=== PATIENT | male | born 1995 | race African-American/Black ===

== ENCOUNTER 2024-03-17 01:38 | Emergency (ER) | payer OTHER ==
[~2024-03-17] VITALS: Ht 190.5 cm; Wt 70.5 kg
[2024-03-17 01:44] VITALS: BP 132/82; PULSE 104; RESP 18; TEMP 99.1; O2SAT 97
[2024-03-17 02:44] LABS: PH,URINE DRUG SCREEN 5.5 (5.0-8.0)
[2024-03-17 02:51] LABS: BARBITURATE SCREEN, URINE NEGATIVE (NEGATIVE); METHADONE SCREEN, URINE NEGATIVE (NEGATIVE); OPIATE SCREEN,URINE NEGATIVE (NEGATIVE); PHENCYCLIDINE SCREEN,URINE NEGATIVE (NEGATIVE)
[2024-03-17 03:05] LABS: AMPHET/METH SCREEN,URINE NEGATIVE (NEGATIVE); BENZODIAZEPINES SCREEN,URINE NEGATIVE (NEGATIVE); COCAINE SCREEN,URINE NEGATIVE (NEGATIVE)
[2024-03-17] MEDS: DiphenhydrAMINE HCL 25 MG CAPSULE PO ONE (03:26)
[2024-03-17] MEDS: OLANZapine 10 MG TABLET PO ONE (03:26)
[2024-03-17 03:40] LABS: ALCOHOL, URINE DRUG SCREEN NEGATIVE (NEGATIVE); CANNABINOID SCREEN,URINE POSITIVE (NEGATIVE)
== END 2024-03-17 06:24 | disposition home or self-care (01) ==
LOC: EMS 01:41
DX: F10.10 Alcohol abuse, uncomplicated (principal); F15.10 Other stimulant abuse, uncomplicated; F41.0 Panic disorder [episodic paroxysmal anxiety]; Y90.6 Blood alcohol level of 120-199 mg/100 ml
CPT/HCPCS: 80307; 99283